=== PATIENT | female | born 1970 | race Caucasian/White ===

== ENCOUNTER 2023-08-10 07:17 | Emergency (ER) | payer BC ==
[2023-08-10] MEDS ORDERED: Ondansetron 4 MG/2 ML SDV IVPUSH ONE (07:44)
[2023-08-10] MEDS ORDERED: Ketorolac 30 MG/ML SDV IVPUSH ONE (07:44)
[2023-08-10] MEDS ORDERED: Naloxone 0.4 MG/ML SDV IVPUSH PRN (07:45)
[2023-08-10] MEDS ORDERED: Morphine 4 MG/ML VIAL IVPUSH ONE (07:45)
[2023-08-10 08:03] LABS: BASOPHILS PERCENT AUTO 0.4 % (0.2-1.5); EOSINOPHILS ABSOLUTE AUTO 0.1 x10-3/uL (0.0-0.8); EOSINOPHILS PERCENT AUTO 1.1 % (0.6-8.1); HEMATOCRIT 39.9 % (34.2-48.2); HEMOGLOBIN 13.1 g/dL (11.4-15.5); LYMPHOCYTES PERCENT AUTO 18.6 % (18.4-52.1); MEAN CORPUSCULAR HEMOGLOBIN 28.7 pg (23.9-33.9); MEAN CORPUSCULAR HGB CONC 32.9 g/dL (31.9-34.8); MEAN CORPUSCULAR VOLUME 87.3 fL (76.7-100.5); MEAN PLATELET VOLUME 8.6 fL (7.1-12.4); MONOCYTES ABSOLUTE AUTO 0.5 x10-3/uL (0.3-1.0); MONOCYTES PERCENT AUTO 4.2 % (4.4-15.7); NEUTROPHILS ABSOLUTE AUTO 8.2 x10-3/uL (1.5-6.3); NEUTROPHILS PERCENT AUTO 75.7 % (30.8-76.2); PLATELET COUNT,PLT 234 x10(3)uL (151-488); RED BLOOD CELL COUNT 4.58 x10(6)uL (3.60-5.20); RED CELL DISTRIBUTION WIDTH 13.6 % (12.3-16.5); WHITE BLOOD CELL COUNT,WBC 10.9 x10-3/uL (3.0-10.3)
[2023-08-10 08:07] LABS: BLOOD UREA NITROGEN,BUN 23 mg/dL (7-18); BUN/CREATININE RATIO 25.6 (9-20); CALCIUM 9.8 mg/dL (8.6-10.2); CARBON DIOXIDE,CO2 26 mmol/L (21-32); CHLORIDE,CL 99 mmol/L (100-110); CREATININE 0.9 mg/dL (0.55-1.02); ESTIMATED GFR 76 mL/min (>60); GLUCOSE RANDOM 127 mg/dL (80-116); POTASSIUM,K 3.7 mmol/L (3.5-5.3); SODIUM,NA 134 mmol/L (135-145)
[2023-08-10 08:13] LABS: A/G RATIO 0.9; ALANINE AMINOTRANSFERASE,ALT 35 U/L (12-36); ALBUMIN 3.5 g/dL (3.5-5.2); ALKALINE PHOSPHATASE 83 IU/L (56-112); ASPARTATE AMNIOTRANSFERASE,AST 32 IU/L (5-25); BILIRUBIN TOTAL 0.7 mg/dL (0.1-1.3); PROTEIN TOTAL,TP 7.3 g/dL (6.0-8.0)
[2023-08-10] MEDS ORDERED: Sodium Chloride 0.9% 1,000 ML IV SCH (08:30)
[2023-08-10] MEDS ORDERED: Tamsulosin 0.4 MG Cap.ER PO ONE (09:24)
[2023-08-10] MEDS ORDERED: Acetaminophen/oxyCODONE 325-5 MG Tab PO PRN (09:24)
[2023-08-10 10:27] VITALS: BP 124/59; PULSE 66
== END 2023-08-10 10:23 | disposition home or self-care (01) ==
LOC: FB.ED 07:17
DX: N13.9 Obstructive and reflux uropathy, unspecified (principal); N20.0 Calculus of kidney; Z79.899 Other long term (current) drug therapy
CPT/HCPCS: 36415; 74176; 80053; 85025; 96361; 96374; 96375; 99284; 99284-25; A9270-GY; J1885; J2270; J2405; J7030